=== PATIENT | male | born 1985 | race Caucasian/White ===

== ENCOUNTER 2016-11-23 02:31 | Emergency (ER) | payer SELFPAY ==
[2016-11-23 04:07] VITALS: BP 110/78
== END 2016-11-23 04:07 | disposition home or self-care (01) ==
LOC: ED 02:31
DX: F41.9 Anxiety disorder, unspecified (principal); I10 Essential (primary) hypertension; Z72.0 Tobacco use; Z72.89 Other problems related to lifestyle

== ENCOUNTER 2017-01-06 23:20 | Emergency (ER) | payer SELFPAY ==
[2017-01-06 23:28] VITALS: BP 138/102
== END 2017-01-07 00:30 | disposition other institution (70) ==
LOC: ED 23:20
DX: I10 Essential (primary) hypertension (principal)

== ENCOUNTER 2017-01-06 23:20 | Emergency (ER) | payer OTHER | END 2017-01-07 00:30 | disposition other institution (70) | LOC: ED 23:20 | DX: Z02.89 Encounter for other administrative examinations (principal) ==

== ENCOUNTER 2020-07-30 19:04 | Emergency (ER) | payer SELFPAY ==
[~2020-07-30] VITALS: Ht 165.1 cm; Wt 88.0 kg
[2020-07-30 19:26] VITALS: Ht 165.1 cm; Wt 88.0 kg
[2020-07-30 20:28] LABS: microscopic required? NO
[2020-07-30 20:42] LABS: BASOPHIL % 0.4 % (0-2); PLATELET COUNT 262 x10^3mcL (130-400); RED CELL DISTRIBUTION WIDTH 13.5 % (11.5-14.5)
[2020-07-30 20:43] LABS: UA SPECIFIC GRAVITY >=1.030 (1.005-1.035); urine erythrocyte NEGATIVE (NEGATIVE)
[2020-07-30 21:00] LABS: CALCIUM 8.6 mg/dL (8.5-10.1); CARBON DIOXIDE 23.7 mmol/L (21-32); CHLORIDE SERUM 103 mmol/L (98-107); GFR1 > 60 mL/min; GLUCOSE SERUM 81 mg/dL (74-106); POTASSIUM SERUM 3.3 mmol/L (3.5-5.1); SODIUM SERUM 140 mmol/L (136-145)
[2020-07-30 21:04] LABS: ALKALINE PHOSPHATASE 121 U/L (46-116); ALT/SGPT 50 U/L (16-63); AST/SGOT 25 U/L (15-37); BILIRUBIN TOTAL 0.3 mg/dL (0.20-1.00); TOTAL PROTEIN, SERUM 7.8 g/dL (6.4-8.2)
[2020-07-30 22:57] VITALS: BP 145/72
== END 2020-07-30 22:57 | disposition home or self-care (01) ==
LOC: ED 19:04
PROVIDERS: Specialist
DX: R10.31 Right lower quadrant pain (principal); I10 Essential (primary) hypertension